=== PATIENT | male | born 1995 | race Two or more races ===

== ENCOUNTER 2017-10-03 08:25 | Emergency (ER) | payer SELFPAY ==
[~2017-10-03] VITALS: Ht 180.3 cm; Wt 81.6 kg
[2017-10-03 08:55] VITALS: BP 143/80
[2017-10-03] MEDS ORDERED: Dexamethasone 4mg/ml vial IM ONE (09:00)
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
[2017-10-03 11:19] VITALS: BP 129/88
== END 2017-10-03 11:21 | disposition home or self-care (01) ==
LOC: EMR 08:29
DX: J02.9 Acute pharyngitis, unspecified (principal)
CPT/HCPCS: 86703; 96372; 99283; J1100